=== PATIENT | male | born 1945 | race Caucasian/White ===

== ENCOUNTER 2018-06-18 18:32 | Inpatient (IN) | payer MEDICARE, MEDICAID ==
--- NOTE | 2018-06-18 19:00 | RAD ---
CHEST ONE VIEW: 06/18/18 INDICATION: CHF exacerbation. COMPARISON: Prior exam dated 06/18/18. IMPRESSION: The examination is unchanged from the comparison examination. Right basilar opacity persists. Cardio megaly and pulmonary vascular congestion is similar appearing. Osseous structures are unchanged. POS: [facility]
[2018-06-18 19:41] LABS: Bilirubin Negative (Negative); Blood, Urine Negative (Negative); Clarity CLEAR (Clear); Glucose, Urine (Dipstick) Negative (Negative); Leukocyte Small (Negative); Nitrite Negative (Negative); Protein, Urine (Dipstick) Negative (Neg-Trace); Specific Gravity, Urine 1.003 (1.002-1.036); pH, Urine 7.5 (5.0-9.0)
[2018-06-18 19:42] LABS: Bacteria/HPF 1+ HPF (None Seen); Hyaline Casts/LPF 0-3 HYALINE CAST LPF (0-3 Hyaline); RBC/HPF None Seen HPF (0-3); Squamous Epithelial None Seen HPF (0-3); WBC/HPF 0-3 HPF (0-3)
[2018-06-18 19:51] LABS: Amphetamine Not Detected (NotDetected); Barbiturates Screen Not Detected (NotDetected); Benzodiazepine Screen Detected (NotDetected); Cocaine Metabolite Screen Not Detected (NotDetected); Medtox Control Line Valid? VALID (VALID); Medtox Reader # READER 4; Methadone Not Detected (NotDetected); Methamphetamine Not Detected (NotDetected); Opiate Screen Not Detected (NotDetected); Oxycodone Screen Not Detected (NotDetected); Phencyclidine (PCP) Not Detected (NotDetected); THC/Cannabinoid Screen Detected (NotDetected); Tricyclic Screen Detected (NotDetected)
[2018-06-18] MEDS ORDERED: Sodium Chloride 0.9% 100 ML ONE (20:01)
[2018-06-18] MEDS ORDERED: cefTRIAXone\\ROCEPHIN 1 GM VIAL ONE (20:01)
[2018-06-18 21:08] LABS: #Eosinphils 0.2 thou/uL (0.0-0.7); #Lymphocytes 1.5 thou/uL (1.20-3.40); #Monocytes 0.6 thou/uL (0.11-0.59); #Neutrophils 5.1 thou/uL (1.40-6.50); %Basophils 0.5 % (0.0-1.0); %Eosinophils 2.1 % (0.0-10.0); %Lymphocytes 19.9 % (21.0-51.0); %Monocytes 8.2 % (0.0-10.0); %Neutrophils 69.2 % (42.0-75.0); Mean Corpuscular HGB CONC 30.9 g/dL (32.0-36.0); Mean Corpuscular Hemoglobin 31.7 pg (27.0-31.0); Mean Platelet Volume 9.8 fL (7.4-10.4); Platelet Count 166 thou/uL (130-400); RBC Distribution Width 15.2 % (11.5-14.5); Red Blood Cell (RBC) Count 4.75 mill/uL (4.70-6.10); White Blood Cell (WBC) Count 7.3 thou/uL (4.8-10.8)
[2018-06-18 21:30] LABS: Acetaminophen Less than 6.0 mcg/mL (10.0-30.0); Alcohol Less than 10 mg/dL (Less than 10); Magnesium 1.5 mg/dL (1.6-2.6); Salicylate Less than 8.0 mg/dL (15.0-30.0)
[2018-06-18 21:31] LABS: ALT (SGPT) 23 U/L (8-55); AST (SGOT) 40 U/L (5-34); Albumin 4.1 g/dL (3.4-4.8); Alkaline Phosphatase 133 U/L (40-150); Anion Gap 13 mmol/L (10-20); BUN (Urea Nitrogen) 15 mg/dL (8.4-25.7); Bilirubin, Total 0.9 mg/dL (0.2-1.2); Calc. Creatinine Clearance 0 mL/min (70-130); Calcium 10.2 mg/dL (7.8-10.44); Carbon Dioxide 32 mmol/L (23-31); Chloride 100 mmol/L (98-107); Estimated GFR-MDRD 75; Globulin 3.1 g/dL (2.4-3.5); Glucose 75 mg/dL (83-110); Potassium 3.4 mmol/L (3.5-5.1); Protein, Total 7.2 g/dL (5.8-8.1); Sodium 142 mmol/L (136-145)
[2018-06-18 21:57] LABS: CKMB 8.1 ng/mL (0-6.6)
[2018-06-18] MEDS ORDERED: Magnesium 2 GM/50 ML 2 GM in Premix Bag 1 BAG IVPB SCH (22:30)
[2018-06-19] MEDS ORDERED: HYDROcodone/Acetaminophen 5/325 mg Tablet ONE (00:41)
[2018-06-19] MEDS ORDERED: Magnesium Sulfate 4 GM in Sodium Chloride 0.9% 250 ML 250 ML IVPB SCH (04:00)
[2018-06-19] MEDS ORDERED: Senokot S 8.6-50 MG TAB PO PRN (05:05)
[2018-06-19] MEDS ORDERED: Ondansetron ODT 4 MG TAB PO PRN (05:05)
[2018-06-19] MEDS ORDERED: Ondansetron PF 4 MG/2 ML Vial IVP PRN (05:05)
[2018-06-19] MEDS ORDERED: Acetaminophen 325 MG TAB PO PRN (05:05)
[2018-06-19] MEDS ORDERED: Calcium Carbonate 500 MG ChewTAB PO PRN (05:05)
--- NOTE | 2018-06-19 05:51 | HP ---
PRIMARY CARE PHYSICIAN: Dr. Escobar. CHIEF CONCERN: Recurrent falls. HISTORY OF PRESENT ILLNESS: The patient is a 73-year-old male with depression dementia, hypertension, hyperlipidemia, and COPD, was brought in to [facility] Emergency Room by EMS with the above complaint. Over the last 4 months, the patient has been progressively declining. He has fallen multiple times. He has lost approximately 25 to 30 pounds over the last 3 to 4 months. He has also lost his appetite. According to the son who is at the bedside, he is severely depressed. He smokes cigarettes and cannabis. He has been short of breath on minimal exertion. No recent immobilization travel reported. History is limited from the patient due to cognitive issues. In the emergency room at [place], his initial vital signs showed temperature 96.3, respirations 20, pulse of 94 with a blood pressure 124/77 with O2 saturation 93% on room air. He received 40 mg IV Lasix in the emergency room for CHF exacerbation. According to the son, the patient refused to go to the emergency room. He had to consult APS for this reason. PAST MEDICAL HISTORY: 1. Hypertension. 2. Hyperlipidemia. 3. Dementia. 4. COPD. 5. Psoriasis. PAST SURGICAL HISTORY: Reviewed with the patient and none. ALLERGIES: NO KNOWN DRUG ALLERGIES. CURRENT HOME MEDICATIONS: The patient is unable to recall any of his home medications. Family to bring the medications later today. FAMILY HISTORY: Negative for premature coronary artery disease. SOCIAL HISTORY: The patient currently lives alone. He abuses cannabis for more than 50 years. He denies daily use of alcohol; however, he is a binge drinker. He has not consumed alcohol recently. He smokes up to half pack a day. Full code. DPOA - Patient makes his own decisions with the help of his family. REVIEW OF SYSTEMS: Review of systems is limited due to current cognitive status. PHYSICAL EXAMINATION: VITAL SIGNS: As discussed above. GENERAL: A 73-year-old male, in no apparent distress. HEENT: Head; atraumatic, normocephalic. Sclerae anicteric. Dry mucous membranes. No oral lesion. NECK: Supple. No JVD appreciated. No carotid bruit. LUNGS: Showed diminished air entry at bilateral bases with bibasilar rales. There was scattered rhonchi. Minimal wheezing noted. No accessory muscle use. HEART: S1, S2 present. 2/6 systolic murmur over the left lateral sternal border. No heaves or pulsation. Rhythm was irregularly irregular. ABDOMEN: Soft, nontender. Bowel sounds present. EXTREMITIES: There are multiple skin abrasions with chronic wounds especially over bilateral knees. SKIN: As discussed above. LYMPH NODES: No palpable lymph nodes in the neck. PERIPHERAL VASCULAR: Radial pulses palpable bilaterally. MUSCULOSKELETAL: No joint swelling or tenderness. PSYCHIATRY: The patient is alert, awake, and oriented x3. Poor historian. NEUROLOGY: Cranial nerves 2 through 12 are normal on examination. Power was 5/ 5 in all extremities. LABORATORY FINDINGS: WBC 7.3 with hemoglobin 15, hematocrit 48.7, platelet of 166. Chemistry showed sodium 142, potassium 3.4, chloride 100, bicarb 32, BUN 15, and creatinine 0.98. BNP was 3039. Magnesium 1.5. Urine drug screen was positive for tricyclics, benzodiazepines, and cannabinoids. Urinalysis was negative for wbc' s. It showed 1+ bacteria. IMAGING STUDIES: Chest x-ray by my review showed pulmonary vascular congestion. EKG by my review showed sinus rhythm with frequent PVCs with nonspecific ST-T wave changes in the lateral leads. IMPRESSION: 1. Generalized weakness with recurrent fall. 2. Acute congestive heart failure exacerbation. 3. Hypokalemia/hypomagnesemia. 4. Elevated troponin secondary to demand ischemia. 5. Macrocytosis, rule out vitamin B12 and folic acid deficiency. 6. Hypertension. 7. Hyperlipidemia. 8. Moderate depression, stable. The patient denies any suicidal ideation. 9. Weight loss of 25 to 30 pounds in the last 3 to 4 months. 10. Dementia. 11. Chronic obstructive pulmonary disease. PLAN: The patient will be monitored on the telemetry unit. Echocardiogram will be obtained. Continue gentle diuresis. We will start thiamine, folic acid, and multivitamin. We will rule out hypothyroidism. Consult Physical Therapy and Occupational Therapy. Consult Palliative Care probably on Wednesday. Fluid restriction. Check CK. Replace electrolytes. Recheck labs in a.m. Plan of care was discussed with the patient and the son at the bedside. They stated understanding. Job ID: [id number] MTDD
[2018-06-19] MEDS: Furosemide 20 MG/2 ML VIAL SLOW IVP SCH ×2 (06:30→14:51)
[2018-06-19 06:39] LABS: Anion Gap 13 mmol/L (10-20); BUN (Urea Nitrogen) 14 mg/dL (8.4-25.7); CK (CPK) 433 U/L (30-200); Calc. Creatinine Clearance 92 mL/min (70-130); Carbon Dioxide 26 mmol/L (23-31); Chloride 102 mmol/L (98-107); Estimated GFR-MDRD Greater than 90; Glucose 101 mg/dL (83-110); Potassium 3.3 mmol/L (3.5-5.1); Sodium 138 mmol/L (136-145)
[2018-06-19 06:43] LABS: CKMB 6.2 ng/mL (0-6.6)
[2018-06-19 06:44] LABS: Troponin I 0.236 ng/mL (< 0.028)
[2018-06-19 07:04] LABS: Folate (Folic Acid) 5.4 ng/mL (7.0-31.4)
[2018-06-19] MEDS ORDERED: Potassium Chloride 20 MEQ TAB PO SCH (07:45)
[2018-06-19] MEDS: Aspirin 325 MG TAB PO SCH (08:50)
[2018-06-19] MEDS: Folic Acid 1 MG TAB PO SCH (08:51)
[2018-06-19] MEDS: Carvedilol 3.125 MG TAB PO SCH ×2 (08:51→20:23)
[2018-06-19] MEDS: Multivit, Therapeutic 1 TAB PO SCH (08:51)
[2018-06-19] MEDS: Cyanocobalamin (Vitamin B-12) 1,000 MCG TAB PO SCH (08:51)
[2018-06-19] MEDS: Thiamine 100 MG TAB PO SCH (08:51)
[2018-06-19] MEDS: Doxycycline 100 MG CAP PO SCH ×2 (08:52→20:23)
--- NOTE | 2018-06-19 17:03 | PDOC.PN ---
- Subjective Encounter Start Date: 06/19/18 Encounter Start Time: 15:00 Mr. Mayfield was seen today in follow-up of generalized weakness and possible CHF. He does not have any complaints. He says he feels much stronger, but admits that he had had problems with balance and falling. - Objective Resuscitation Status - Order Detail: 06/19/18 05:05 Resuscitation Status Routine Resuscitation Status: FULL: Full Resuscitation MAR Reviewed: Yes Vital Signs & Weight: Vital Signs (12 hours) Temp Pulse Pulse Pulse Resp BP BP 06/19/18 15:51 97.3 F L 65 16 06/19/18 14:40 67 20 06/19/18 13:50 60 69 104/62 129/77 06/19/18 12:00 97.3 F L 56 L 16 06/19/18 08:00 98.2 F 64 18 06/19/18 07:48 06/19/18 07:45 66 16 BP Pulse Ox 06/19/18 15:51 120/78 97 06/19/18 14:40 97 06/19/18 13:50 06/19/18 12:00 124/74 94 L 06/19/18 08:00 142/71 H 98 06/19/18 07:48 98 06/19/18 07:45 98 Weight Weight 153 lb 3.2 oz I&O: 06/18/18 06/19/18 06/20/18 05:59 06:59 06:59 Intake Total 240 Balance 240 Result Diagrams: 06/18/18 20:45 06/19/18 06:04 Phys Exam - Physical Examination HEENT: PERRLA Respiratory: no wheezing, no rales, no rhonchi, clear to auscultation bilateral Cardiovascular: RRR, no significant murmur, no rub Gastrointestinal: soft, non-tender, no distention, positive bowel sounds Musculoskeletal: no edema Deviation from normal: + scaly rash on the knees, and patches on the upper extremities Dx/Plan (1) CHF exacerbation Code(s): I50.9 - HEART FAILURE, UNSPECIFIED Status: Acute (2) Generalized weakness Code(s): R53.1 - WEAKNESS Status: Acute (3) Folic acid deficiency Code(s): E53.8 - DEFICIENCY OF OTHER SPECIFIED B GROUP VITAMINS Status: Acute (4) Hypertension Code(s): I10 - ESSENTIAL (PRIMARY) HYPERTENSION Status: Acute - Plan * Possible CHF- continue Lasix IV, and await Echo results * HTN- blood pressure is controlled * Folic Acid Deficiency- likely nutritional- continue Folic acid and thiamine supplementation * Balance and gait deficiency could be related to folic acid deficiency ( peripheral neuropathy) * Continue PT/OT * Suspect he may need a stay in alf prior to returning home .
--- NOTE | 2018-06-19 19:12 | RAD ---
RIGHT FOOT THREE VIEWS: History: Chronic foot infection. Comparison: None. FINDINGS: There are marked [place] calcifications seen within the soft tissues. There is mild osteoarthrosis involving the midfoot and forefoot. No destructive osteolysis is seen to suggest presence of osteomy elitis on bioradiography. There is diffuse soft tissue swelling of the right foot. Lisfranc alignment is preserved. No radiopaque foreign body is noted. IMPRESSION: Diffuse soft tissue swelling of the right foot may reflect edema or cellulitis. No destructive osteol ysis is seen on these radiographs to suggest osteomyelitis. There is scattered osteoarthrosis of the right foot. There is advanced vascular disease of the right lower extremity. POS: [facility]
[2018-06-20 06:31] LABS: ALT (SGPT) 17 U/L (8-55); AST (SGOT) 25 U/L (5-34); Albumin 3.6 g/dL (3.4-4.8); Alkaline Phosphatase 115 U/L (40-150); Anion Gap 13 mmol/L (10-20); BUN (Urea Nitrogen) 13 mg/dL (8.4-25.7); Bilirubin, Total 1.2 mg/dL (0.2-1.2); Calc. Creatinine Clearance 79 mL/min (70-130); Calcium 9.4 mg/dL (7.8-10.44); Carbon Dioxide 30 mmol/L (23-31); Chloride 98 mmol/L (98-107); Estimated GFR-MDRD 90; Globulin 2.8 g/dL (2.4-3.5); Glucose 85 mg/dL (83-110); Phosphorus 2.7 mg/dL (2.3-4.7); Potassium 3.9 mmol/L (3.5-5.1); Protein, Total 6.4 g/dL (5.8-8.1); Sodium 137 mmol/L (136-145)
[2018-06-20 06:40] LABS: #Basophils 0.1 thou/uL (0.0-0.2); #Eosinphils 0.6 thou/uL (0.0-0.7); #Lymphocytes 2.3 thou/uL (1.20-3.40); #Monocytes 0.5 thou/uL (0.11-0.59); #Neutrophils 4.5 thou/uL (1.40-6.50); %Basophils 0.9 % (0.0-1.0); %Eosinophils 7.4 % (0.0-10.0); %Lymphocytes 29.2 % (21.0-51.0); %Monocytes 6.3 % (0.0-10.0); %Neutrophils 56.2 % (42.0-75.0); Hemoglobin 15.7 g/dL (14.0-18.0); MDiff Complete? YES; Macrocytosis SLIGHT = 6-15 cells (100X) (0-5/hpf); Mean Corpuscular HGB CONC 28.4 g/dL (32.0-36.0); Mean Corpuscular Hemoglobin 29.8 pg (27.0-31.0); Mean Platelet Volume 9.7 fL (7.4-10.4); Platelet Count 198 thou/uL (130-400); Platelet Morphology Comment Appears Adequate; RBC Distribution Width 15.5 % (11.5-14.5); Red Blood Cell (RBC) Count 5.29 mill/uL (4.70-6.10)
[2018-06-20] MEDS: Furosemide 20 MG/2 ML VIAL SLOW IVP SCH ×2 (06:55→15:28)
[2018-06-20] MEDS: Doxycycline 100 MG CAP PO SCH ×2 (10:26→22:42)
[2018-06-20] MEDS: Aspirin 325 MG TAB PO SCH (10:26)
[2018-06-20] MEDS: Thiamine 100 MG TAB PO SCH (10:26)
[2018-06-20] MEDS: Multivit, Therapeutic 1 TAB PO SCH (10:26)
[2018-06-20] MEDS: Cyanocobalamin (Vitamin B-12) 1,000 MCG TAB PO SCH (10:26)
[2018-06-20] MEDS: Folic Acid 1 MG TAB PO SCH (10:26)
[2018-06-20] MEDS: Carvedilol 3.125 MG TAB PO SCH ×2 (10:26→22:41)
--- NOTE | 2018-06-20 15:01 | CON ---
DATE OF CONSULTATION: 06/20/2018 INDICATION FOR CONSULTATION: A 73-year-old patient with abnormal cardiac enzymes and new onset congestive heart failure. HISTORY OF PRESENT ILLNESS: This very unfortunate 73-year-old gentleman who lives apparently with his daughter. His recently . He has become more depressed. He has been drinking quite a bit, but stopped drinking he says a couple months ago. He also has been smoking since he was a kid, even before being a teenager. He smoked up to half a pack a day and said he stopped about a month ago. He also smokes marijuana on a daily basis. He has done so for over 40 years. He complains of weakness and multiple falls. He was brought to the emergency room by his son who said he restenosed. He is having lower extremity edema and shortness of breath. The patient does admit to having shortness of breath, but denied chest pain. Echocardiogram showed an ejection fraction of 20% to 25% with diastolic dysfunction with restrictive type pattern with moderate mitral and tricuspid valve regurgitation. He has had some diuresis here, only negative 410 mL since being admitted in the hospital. He still has some edema, but shortness of breath has improved. He has had no previous cardiac workup and he has had no previous chest pain or symptoms in the past. PAST MEDICAL HISTORY: Significant for dimension, COPD, and multiple falls at least 2-3 times a week and depression. He also has a history of psoriasis which is rather diffuse as well as hypercholesterolemia and hypertension. ALLERGIES: NONE. MEDICATIONS: The patient was uncertain what he is taking, but he did tell me he takes Vicodin for pain. At this time his medications include: 1. Zofran. 2. Tylenol. 3. DuoNeb. 4. Coreg. 5. Lasix. 6. Multivitamins. 7. Aspirin. He has also been placed on: 1. Vibramycin. 2. As well as Tums. 3. Vitamin B12. 4. Folvite. 5. Thiamine. REVIEW OF SYSTEMS: Essentially, the 12-point review of systems is unremarkable except what was noted in the history of present illness. He denied any significant GI or complaints. He does complain of some shortness of breath. He has also had some problems with some healing on the right 5th foot digit, this is in a surgical wrap at this time. He is aware that he has not been taking care of himself. PHYSICAL EXAMINATION: GENERAL: Reveals an elderly, very ill, unkept gentleman, with poor hygiene. VITAL SIGNS: Blood pressure 126/77, heart rate is 66 and regular. He is afebrile. Respiratory rate 16. HEENT: Shows head to be normocephalic and atraumatic. I did not hear any bruits. There is no JVD. The thyroid does appear to be enlarged. CHEST: Actually, he has decreased breath sounds throughout, but there is no evidence of rales, rhonchi, or wheezing. CARDIOVASCULAR: Reveals a regular rate and rhythm at this time. He has a normal S1, S2. The 2nd heart sound appears to be slightly split. I did not hear any other murmurs, heaves, thrills, bruits, or rubs. ABDOMEN: Soft and nontender. Positive bowel sounds are present. EXTREMITIES: Show no clubbing or cyanosis. He has multiple areas of psoriasis on the knees and elbows. Also, he also has decreased pedal pulses. I could not palpate popliteal pulses either. The right foot is wrapped in surgical dressing. NEUROLOGIC: He does have some degree of dementia, but otherwise I do not elicit any gross focal motor deficits at this time. IMAGING: His EKG showed a sinus rhythm with what appears to be a left bundle branch block, at least an incomplete left bundle branch block with occasional PVCs. LABORATORY DATA: Did show evidence of congestive heart failure with BNP of 3039. Cardiac enzymes shows a troponin I of 0.236. CK of 433 with MB of 8.1, decreasing now to 6.2, this certainly could be some demand ischemia associated with his multiple falls, it is not significantly elevated in comparison to the total CK. Given his history of hypertension, hypercholesterolemia, and continued tobacco abuse, he is a candidate for coronary artery disease and once the patient becomes more stable, it will probably be advantageous to undergo a cardiac catheterization to evaluate the coronary status in this gentleman. IMPRESSION: 1. Congestive heart failure, probably new onset or newly diagnosed. The patient has not been taking care of very much recently and echocardiogram shows severe decrease in left ventricular systolic function. This may be due to alcohol induced viral or other etiologies, but certainly coronary artery disease will have to be ruled out. 2. History of hypertension. Blood pressure is under good control at this time. 3. Illicit drug use. The patient will be instructed not to use further alcohol or marijuana. 4. History of tobacco abuse. He also will be advised to stop smoking. 5. Chronic obstructive pulmonary disease. This will be dealt with by the primary care service. 6. Dementia. This is also will be dealt by the primary care service. 7. Multiple falls. If the patient continues to have multiple falls, most likely he will best be served by being in a facility where he can be watched and observed more carefully. Job ID: [id number]
--- NOTE | 2018-06-20 16:42 | PDOC.PN ---
- Subjective Encounter Start Date: 06/20/18 Encounter Start Time: 15:00 Mr. Mayfield was seen today in follow-up of generalized weakness and falls. He does not have any complaints today. He denies dyspnea or chest pain. - Objective Resuscitation Status - Order Detail: 06/19/18 05:05 Resuscitation Status Routine Resuscitation Status: FULL: Full Resuscitation MAR Reviewed: Yes Vital Signs & Weight: Vital Signs (12 hours) Temp Pulse Resp BP Pulse Ox 06/20/18 15:37 97.9 F 67 16 116/72 97 06/20/18 15:08 66 16 92 L 06/20/18 11:36 97.7 F 66 16 126/77 95 06/20/18 10:19 69 16 92 L 06/20/18 08:00 95 06/20/18 07:55 71 14 93 L 06/20/18 07:30 98.0 F 70 18 130/83 95 Weight Weight 155 lb 12.8 oz I&O: 06/19/18 06/20/18 06/21/18 06:59 06:59 06:59 Intake Total 990 400 Output Total 1400 Balance -410 400 Result Diagrams: 06/20/18 05:42 06/20/18 05:42 Phys Exam - Physical Examination HEENT: PERRLA Respiratory: wheezing present + scatter rales at the bases and some wheezing Cardiovascular: RRR, no significant murmur, no rub Gastrointestinal: soft, non-tender, no distention, positive bowel sounds Musculoskeletal: pulses present, edema present + non-pitting edema, cheonic venous stasis changes Dx/Plan (1) CHF exacerbation Code(s): I50.9 - HEART FAILURE, UNSPECIFIED Status: Acute Qualifiers: Heart failure type: systolic Qualified Code(s): I50.23 - Acute on chronic systolic (congestive) heart failure (2) Generalized weakness Code(s): R53.1 - WEAKNESS Status: Acute (3) Folic acid deficiency Code(s): E53.8 - DEFICIENCY OF OTHER SPECIFIED B GROUP VITAMINS Status: Acute (4) Hypertension Code(s): I10 - ESSENTIAL (PRIMARY) HYPERTENSION Status: Acute - Plan * Acute on chronic systolic heart failure- he is better compensated- EF was noted to be low, between 20-25%. Cardiology has been consulted, and work-up is pending * HTN- blood pressure is controlled * Folic Acid deficiency- continue to replace * Patient had a suspicious lesion on his foot- concern for PVD- will check arterial dopplers.
--- NOTE | 2018-06-20 20:51 | ULT ---
BILATERAL LOWER EXTREMITY ARTERIAL DOPPLER EXAM: History: Peripheral vascular disease. FINDINGS: Right: Peak systolic velocity Common femoral artery 56 cm/sec Profunda femoral 51 cm/sec Proximal superficial femoral 61 cm/sec Mid 58 cm/sec Distal 34 cm/sec Popliteal 37 cm/sec Anterior tibial 29 cm/sec Posterior tibial 32 cm/sec Dorsalis pedis 31 cm/sec Left side: Common femoral artery 70 cm/sec Profunda femoral 51 cm/sec Proximal superficial femoral 53 cm/sec Mid 62 cm/sec Distal 70 cm/sec Popliteal 34 cm/sec Anterior tibial 45 cm/sec Posterior tibial 19 cm/sec Dorsalis pedis 42 cm/sec IMPRESSION: 1. Mildly reduced velocities of both common femoral arteries, particularly on the right. This would s uggest the possibility of proximal aortoiliac disease. In addition, there is suggestion of some mild narrowing of the junction of the mid to distal superficial femoral artery on the right and the juncti on of the distal superficial femoral artery and popliteal artery on the left where there is probably at least a moderate degree of stenosis. POS: [facility]
[2018-06-21] MEDS: Furosemide 20 MG/2 ML VIAL SLOW IVP SCH ×2 (05:28→14:38)
[2018-06-21 05:42] LABS: #Basophils 0.1 thou/uL (0.0-0.2); #Eosinphils 0.5 thou/uL (0.0-0.7); #Lymphocytes 1.9 thou/uL (1.20-3.40); #Monocytes 0.5 thou/uL (0.11-0.59); #Neutrophils 4.9 thou/uL (1.40-6.50); %Basophils 0.7 % (0.0-1.0); %Eosinophils 6.6 % (0.0-10.0); %Lymphocytes 24.5 % (21.0-51.0); %Monocytes 5.8 % (0.0-10.0); %Neutrophils 62.4 % (42.0-75.0); Hemoglobin 16.5 g/dL (14.0-18.0); Mean Corpuscular HGB CONC 31.3 g/dL (32.0-36.0); Mean Corpuscular Hemoglobin 31.8 pg (27.0-31.0); Mean Platelet Volume 9.1 fL (7.4-10.4); Platelet Count 201 thou/uL (130-400); RBC Distribution Width 15.3 % (11.5-14.5); Red Blood Cell (RBC) Count 5.17 mill/uL (4.70-6.10); White Blood Cell (WBC) Count 7.9 thou/uL (4.8-10.8)
[2018-06-21 06:08] LABS: ALT (SGPT) 17 U/L (8-55); AST (SGOT) 23 U/L (5-34); Albumin 3.6 g/dL (3.4-4.8); Alkaline Phosphatase 121 U/L (40-150); Anion Gap 14 mmol/L (10-20); BUN (Urea Nitrogen) 18 mg/dL (8.4-25.7); Bilirubin, Total 0.9 mg/dL (0.2-1.2); Calc. Creatinine Clearance 83 mL/min (70-130); Calcium 9.6 mg/dL (7.8-10.44); Carbon Dioxide 29 mmol/L (23-31); Chloride 99 mmol/L (98-107); Estimated GFR-MDRD Greater than 90; Globulin 2.9 g/dL (2.4-3.5); Glucose 85 mg/dL (83-110); Magnesium 1.9 mg/dL (1.6-2.6); Phosphorus 3.8 mg/dL (2.3-4.7); Potassium 3.6 mmol/L (3.5-5.1); Protein, Total 6.5 g/dL (5.8-8.1); Sodium 138 mmol/L (136-145)
[2018-06-21] MEDS: Doxycycline 100 MG CAP PO SCH ×2 (09:12→21:34)
[2018-06-21] MEDS: Aspirin 325 MG TAB PO SCH (09:12)
[2018-06-21] MEDS: Thiamine 100 MG TAB PO SCH (09:13)
[2018-06-21] MEDS: Folic Acid 1 MG TAB PO SCH (09:13)
[2018-06-21] MEDS: Spironolactone 25 MG TAB PO SCH (09:13)
[2018-06-21] MEDS: Carvedilol 3.125 MG TAB PO SCH ×2 (09:13→21:35)
[2018-06-21] MEDS: Cyanocobalamin (Vitamin B-12) 1,000 MCG TAB PO SCH (09:13)
[2018-06-21] MEDS: Multivit, Therapeutic 1 TAB PO SCH (09:13)
[2018-06-21] MEDS: Lisinopril 5 MG TAB PO SCH ×2 (09:14→21:35)
--- NOTE | 2018-06-21 16:01 | PDOC.PN ---
- Subjective Encounter Start Date: 06/21/18 Encounter Start Time: 15:00 Mr. Mayfield was seen today in follow-up of newly diagnosed heart failure. He does not have any complaints today. - Objective Resuscitation Status - Order Detail: 06/19/18 05:05 Resuscitation Status Routine Resuscitation Status: FULL: Full Resuscitation MAR Reviewed: Yes Vital Signs & Weight: Vital Signs (12 hours) Temp Pulse Pulse Pulse Resp BP BP 06/21/18 15:31 97.4 F L 65 20 06/21/18 11:35 97.7 F 69 18 06/21/18 10:54 69 84 120/69 123/63 06/21/18 10:03 79 14 06/21/18 09:14 71 06/21/18 08:00 97.5 F L 72 20 06/21/18 06:25 76 16 06/21/18 04:00 98.2 F 72 19 BP BP Pulse Ox Pulse Ox 06/21/18 15:31 114/62 98 06/21/18 11:35 128/63 95 06/21/18 10:54 95 06/21/18 10:03 95 06/21/18 09:14 06/21/18 08:00 119/71 93 L 06/21/18 06:25 94 L 06/21/18 04:00 125/77 95 Weight Weight 154 lb 8 oz I&O: 06/20/18 06/21/18 06/22/18 06:59 06:59 06:59 Intake Total 990 1040 480 Output Total 1400 350 Balance -410 1040 130 Result Diagrams: 06/21/18 05:21 06/21/18 05:21 Phys Exam - Physical Examination HEENT: PERRLA, sclera anicteric Respiratory: no wheezing, no rales, no rhonchi, clear to auscultation bilateral Cardiovascular: RRR, no significant murmur, no rub Gastrointestinal: soft, non-tender, no distention, positive bowel sounds Musculoskeletal: no edema, pulses present + palpable D.P. and P.T. pulses bilaterally, but they are diminished Neurological: non-focal Dx/Plan (1) CHF exacerbation Code(s): I50.9 - HEART FAILURE, UNSPECIFIED Status: Acute Qualifiers: Heart failure type: systolic Qualified Code(s): I50.23 - Acute on chronic systolic (congestive) heart failure (2) Generalized weakness Code(s): R53.1 - WEAKNESS Status: Acute (3) Folic acid deficiency Code(s): E53.8 - DEFICIENCY OF OTHER SPECIFIED B GROUP VITAMINS Status: Acute (4) Hypertension Code(s): I10 - ESSENTIAL (PRIMARY) HYPERTENSION Status: Acute - Plan * New Onset CHF- plan is for cardiac cath tomorrow * Clinically this is compensated * HTN- blood pressure is controlled * Folic Acid deficiency- continue to replace * PT/OT * correction placement once work-up for CHF complete.
[2018-06-21] MEDS ORDERED: Simvastatin 20 MG TAB PO SCH (21:00)
[2018-06-21] MEDS ORDERED: Donepezil HCl 10 MG TAB PO SCH (23:45)
[2018-06-22 05:46] LABS: Cardiac Risk 3.3 (Less than 4.5)
[2018-06-22] MEDS ORDERED: Simvastatin 20 MG TAB PO SCH (08:28)
[2018-06-22] MEDS: Multivit, Therapeutic 1 TAB PO SCH (08:57)
[2018-06-22] MEDS: Doxycycline 100 MG CAP PO SCH ×2 (08:57→21:28)
[2018-06-22] MEDS: Thiamine 100 MG TAB PO SCH (08:57)
[2018-06-22] MEDS: Carvedilol 3.125 MG TAB PO SCH ×2 (08:57→21:29)
[2018-06-22] MEDS: Folic Acid 1 MG TAB PO SCH (08:57)
[2018-06-22] MEDS: Cyanocobalamin (Vitamin B-12) 1,000 MCG TAB PO SCH (08:57)
[2018-06-22] MEDS: Aspirin 325 MG TAB PO SCH (08:57)
[2018-06-22] MEDS: Lisinopril 5 MG TAB PO SCH ×2 (08:57→21:28)
[2018-06-22] MEDS: Spironolactone 25 MG TAB PO SCH (08:58)
[2018-06-22] MEDS: Furosemide 20 MG/2 ML VIAL SLOW IVP SCH ×2 (10:11→15:36)
--- NOTE | 2018-06-22 13:53 | PDOC.PN ---
- Subjective Encounter Start Date: 06/22/18 Encounter Start Time: 13:51 Subjective: woken up and denies any discomfort or chest pain or SOB -: no ON events - Objective Resuscitation Status - Order Detail: 06/19/18 05:05 Resuscitation Status Routine Resuscitation Status: FULL: Full Resuscitation MAR Reviewed: Yes Vital Signs & Weight: Vital Signs (12 hours) Temp Pulse Resp BP BP BP Pulse Ox 06/22/18 13:49 65 16 95 06/22/18 11:25 97.9 F 68 18 118/75 92 L 06/22/18 10:36 69 18 94 L 06/22/18 08:57 78 135/82 95 06/22/18 07:36 98.3 F 78 20 135/82 93 L 06/22/18 06:26 75 16 95 06/22/18 04:00 98.4 F 73 18 134/77 96 06/22/18 02:28 74 16 95 Weight Weight 151 lb 3.2 oz I&O: 06/21/18 06/22/18 06/23/18 06:59 06:59 06:59 Intake Total 1040 680 Output Total 350 Balance 1040 330 Result Diagrams: 06/21/18 05:21 06/21/18 05:21 Additional Labs: Microbiology 06/18/18 22:39 Venous blood - Right Arm Blood Culture - Preliminary NO GROWTH AT 48 HOURS 06/18/18 20:45 Venous blood - Right Arm Blood Culture - Preliminary NO GROWTH AT 48 HOURS Laboratory Tests 06/18/18 06/18/18 06/18/18 15:30 20:45 20:45 CK-MB (CK-2) Troponin I 0.243 H 0.235 H B-Natriuretic Peptide 3039.5 H Vitamin B12 Folate TSH 3rd Generation 06/19/18 06/19/18 06/19/18 06:04 06:04 06:04 CK-MB (CK-2) Troponin I 0.236 H B-Natriuretic Peptide Vitamin B12 401 Folate 5.40 L TSH 3rd Generation 2.4688 06/19/18 06:04 CK-MB (CK-2) 6.2 Troponin I B-Natriuretic Peptide Vitamin B12 Folate TSH 3rd Generation Phys Exam - Physical Examination Constitutional: NAD HEENT: PERRLA, moist MMs, sclera anicteric, TM's clear, 2+ tonsils Neck: no nodes, no JVD, supple, full ROM Respiratory: no wheezing, no rales, no rhonchi Cardiovascular: RRR, no significant murmur Gastrointestinal: soft, non-tender, no distention, positive bowel sounds Musculoskeletal: no edema, pulses present Neurological: non-focal, normal sensation, moves all 4 limbs Psychiatric: normal affect, A&O x 3 Skin: no rash Dx/Plan (1) CHF exacerbation Code(s): I50.9 - HEART FAILURE, UNSPECIFIED Status: Acute Qualifiers: Heart failure type: combined systolic and diastolic Qualified Code(s): I50.43 - Acute on chronic combined systolic (congestive) and diastolic ( congestive) heart failure Comment: ECHO shows poor EF with diastolic dusfunction. (2) Folic acid deficiency Code(s): E53.8 - DEFICIENCY OF OTHER SPECIFIED B GROUP VITAMINS Status: Chronic (3) Generalized weakness Code(s): R53.1 - WEAKNESS Status: Chronic (4) Hypertension Code(s): I10 - ESSENTIAL (PRIMARY) HYPERTENSION Status: Chronic (5) Tobacco abuse Code(s): Z72.0 - TOBACCO USE Status: Chronic (6) Tobacco abuse counseling Code(s): Z71.6 - TOBACCO ABUSE COUNSELING Status: Acute (7) HLD (hyperlipidemia) Code(s): E78.5 - HYPERLIPIDEMIA, UNSPECIFIED Status: Chronic (8) COPD (chronic obstructive pulmonary disease) Status: Chronic (9) Psoriasis Code(s): L40.9 - PSORIASIS, UNSPECIFIED Status: Chronic - Plan PT/OT, DVT proph w/lovenox, DVT proph w/SCDs cont diuresis.apperas euvolemic. -: on ASA,statin,BB,jake-i.increase statin dose given evidence of PAD -: cont aldactone given EF 20-25% -: Cardiac cath today. -: approved for rehab.DC when cardiac work up completed.HD stable * . Review of Systems - Review of Systems Constitutional: weakness, malaise. negative: fever, chills, sweats, other Respiratory: negative: Cough, Dry, Shortness of Breath, Hemoptysis, SOB with Excertion, Pleuritic Pain, Sputum, Wheezing Cardiovascular: negative: chest pain, palpitations, orthopnea, paroxysmal nocturnal dyspnea, edema, light headedness, other Gastrointestinal: negative: Nausea, Vomiting, Abdominal Pain, Diarrhea, Constipation, Melena, Hematochezia, Other Genitourinary: negative: Dysuria, Frequency, Incontinence, Hematuria, Retention , Other Musculoskeletal: negative: Neck Pain, Shoulder Pain, Arm Pain, Back Pain, Hand Pain, Leg Pain, Foot Pain, Other Neurological: negative: Weakness, Numbness, Incoordination, Change in Speech, Confusion, Seizures, Other - Medications/Allergies Allergies/Adverse Reactions: Allergies Allergy/AdvReac Type Severity Reaction Status Date / Time No Known Drug Allergies Allergy Verified 06/18/18 22:15 Medications: Current Medications Acetaminophen (Tylenol) 650 mg PO Q4H PRN PRN Reason: Headache/Fever/Mild Pain (1-3) Albuterol/Ipratropium (Duoneb) 3 ml NEB [id number] [facility] Last Admin: 06/22/18 13:49 Dose: 3 ml Aspirin (Aspirin) 325 mg PO DAILY [facility] Last Admin: 06/22/18 08:57 Dose: 325 mg Atorvastatin Calcium (Lipitor) 10 mg PO HS [facility] Calcium Carbonate (Tums) 1,000 mg PO Q4H PRN PRN Reason: Heartburn or Indigestion Carvedilol (Coreg) 3.125 mg PO BID [facility] Last Admin: 06/22/18 08:57 Dose: 3.125 mg Cyanocobalamin (Vitamin B-12) 1,000 mcg PO DAILY [facility] Last Admin: 06/22/18 08:57 Dose: 1,000 mcg Donepezil HCl (Aricept) 10 mg PO HS [facility] Doxycycline Hyclate (Vibramycin) 100 mg PO BID [facility] Last Admin: 06/22/18 08:57 Dose: 100 mg Folic Acid (Folvite) 1 mg PO DAILY [facility] Last Admin: 06/22/18 08:57 Dose: 1 mg Furosemide (Lasix) 20 mg SLOW IVP 0600,1400 [facility] Last Admin: 06/22/18 10:11 Dose: 20 mg Lisinopril (Zestril) 5 mg PO BID [facility] Last Admin: 06/22/18 08:57 Dose: 5 mg Multivitamins (Theragran) 1 tab PO DAILY [facility] Last Admin: 06/22/18 08:57 Dose: 1 tab Ondansetron HCl (Zofran Odt) 4 mg PO Q6H PRN PRN Reason: Nausea/Vomiting Ondansetron HCl (Zofran) 4 mg IVP Q6H PRN PRN Reason: Nausea/Vomiting Senna/Docusate Sodium (Senokot S) 2 tab PO BIDPRN PRN PRN Reason: Constipation Sodium Chloride (Flush - Normal Saline) 10 ml IVF Q12HR [facility] Last Admin: 06/22/18 10:11 Dose: 10 ml Sodium Chloride (Flush - Normal Saline) 10 ml IVF PRN PRN PRN Reason: Saline Flush Spironolactone (Aldactone) 25 mg PO QAM-WM [facility] Last Admin: 06/22/18 08:58 Dose: 25 mg Thiamine HCl (Thiamine) 100 mg PO DAILY [facility] Last Admin: 06/22/18 08:57 Dose: 100 mg
--- NOTE | 2018-06-22 15:29 | PDOC.CTH ---
Cardiology Progress Note - Subjective Pt. seen and eval. by me. No new overnight events. no c/o's. - Objective Vital Signs Temp Pulse Resp BP BP BP Pulse Ox 06/22/18 13:49 65 16 95 06/22/18 11:25 97.9 F 68 18 118/75 92 L 06/22/18 10:36 69 18 94 L 06/22/18 08:57 78 135/82 95 06/22/18 07:36 98.3 F 78 20 135/82 93 L 06/22/18 06:26 75 16 95 06/22/18 04:00 98.4 F 73 18 134/77 96 Weight 151 lb 3.2 oz 06/21/18 06/22/18 06/23/18 06:59 06:59 06:59 Intake Total 1040 680 Output Total 350 Balance 1040 330 - Physical Examination General/Neuro: alert & oriented x3 Neck: no JVD present Lungs: CTA, other: (decreased BS throughout.) Heart: RRR, other: (occ. ectopy.) Abdomen: no HSM, NT/ND, soft Extremities: other: (no palpable popliteal or pedal pulses bila. Femoral pulses present byt decreased.) - Telemetry Telemetry Rhythm: NSR.Occasional PVC.IVCD - Labs Result Diagrams: 06/21/18 05:21 06/21/18 05:21 Troponin/CKMB CK-MB (CK-2) 6.2 ng/mL (0-6.6) 06/19/18 06:04 Troponin I 0.236 ng/mL (< 0.028) H 06/19/18 06:04 - Assessment/Plan 1. CMY: uncertain etiology. Could be significant CAD. Long history of tobacco abuse.HTN.Dyslipidemia.May need Life-Vest prior to d/c. Continue present meds. North-I,Coreg, Aldactone, ASA, Lipitor. 2. HTN: stable. 3. Dyslipidemia. 4. Tobacco abuse. 5. ETOH abuse. 5. Illicit drug use. 6. Frequent falls. 7. Abnormal CIE's. Pt. may benefit from cardiac cath to determine his Coronary status. He denies chest pain or SOB. 8. generalized weakness. Since he remains asymptomatic, it is probably best to apply a Life-Vest. Treat him medically and see if he improves physically and plan for cath in the near future. If he needs CABG he is not a good candidate to do post-op rehab at this time.Once he gets the vest he could go to rehab and follow up in the office in 2 -4 weeks. Review of Systems - Review of Systems EENTM: reports: no symptoms reported Respiratory: reports: no symptoms reported Cardiac (ROS): reports: no symptoms reported ABD/GI: reports: no symptoms reported : reports: no symptoms reported Musculoskeletal: reports: no symptoms reported Neurological: reports: weakness
[2018-06-22] MEDS ORDERED: Clopidogrel Bisulfate 75 MG TAB ONE (21:17)
[2018-06-22] MEDS: Donepezil HCl 10 MG TAB PO SCH (21:27)
[2018-06-22] MEDS: Atorvastatin Calcium 10 MG TAB PO SCH (21:29)
[2018-06-23] MEDS: Furosemide 20 MG/2 ML VIAL SLOW IVP SCH ×2 (05:56→14:55)
[2018-06-23] MEDS: Doxycycline 100 MG CAP PO SCH ×2 (08:49→20:30)
[2018-06-23] MEDS: Cyanocobalamin (Vitamin B-12) 1,000 MCG TAB PO SCH (08:49)
[2018-06-23] MEDS: Aspirin 325 MG TAB PO SCH (08:49)
[2018-06-23] MEDS: Folic Acid 1 MG TAB PO SCH (08:50)
[2018-06-23] MEDS: Thiamine 100 MG TAB PO SCH (08:50)
[2018-06-23] MEDS: Lisinopril 5 MG TAB PO SCH ×2 (08:50→20:31)
[2018-06-23] MEDS: Spironolactone 25 MG TAB PO SCH (08:50)
[2018-06-23] MEDS: Multivit, Therapeutic 1 TAB PO SCH (08:50)
[2018-06-23] MEDS: Carvedilol 3.125 MG TAB PO SCH ×2 (08:54→20:31)
--- NOTE | 2018-06-23 10:03 | PDOC.PN ---
- Subjective Encounter Start Date: 06/23/18 Encounter Start Time: 08:10 -: old records requested/rev Patient seen and examined. No new complaints. No overnight events - Objective Resuscitation Status - Order Detail: 06/19/18 05:05 Resuscitation Status Routine Resuscitation Status: FULL: Full Resuscitation MAR Reviewed: Yes Vital Signs & Weight: Vital Signs (12 hours) Temp Pulse Resp BP Pulse Ox 06/23/18 08:50 75 06/23/18 07:35 75 16 95 06/23/18 07:26 98.0 F 72 18 122/77 95 06/23/18 03:54 97.8 F 70 16 109/59 L 96 06/23/18 02:19 75 16 95 06/23/18 00:15 97.9 F 69 17 121/77 99 Weight Weight 148 lb 8 oz I&O: 06/22/18 06/23/18 06/24/18 06:59 06:59 06:59 Intake Total 680 865 Output Total 350 1625 Balance 330 -760 Result Diagrams: 06/21/18 05:21 06/21/18 05:21 Radiology Reviewed by me: Yes EKG Reviewed by me: Yes Phys Exam - Physical Examination Constitutional: NAD HEENT: PERRLA, moist MMs, sclera anicteric Neck: no JVD, supple Respiratory: no wheezing, no rales, no rhonchi Cardiovascular: RRR, no significant murmur, no rub Gastrointestinal: soft, non-tender, no distention Musculoskeletal: no edema, pulses present Neurological: non-focal, normal sensation Lymphatic: no nodes Psychiatric: normal affect, A&O x 3 Skin: normal turgor Deviation from normal: psoarasis rash noted Dx/Plan (1) Acute on chronic systolic ACC/AHA stage C congestive heart failure Code(s): I50.23 - ACUTE ON CHRONIC SYSTOLIC (CONGESTIVE) HEART FAILURE Status : Acute (2) Moderate mitral regurgitation Code(s): I34.0 - NONRHEUMATIC MITRAL (VALVE) INSUFFICIENCY Status: Acute (3) Moderate tricuspid regurgitation Code(s): I07.1 - RHEUMATIC TRICUSPID INSUFFICIENCY Status: Acute (4) COPD (chronic obstructive pulmonary disease) Status: Chronic (5) Folic acid deficiency Code(s): E53.8 - DEFICIENCY OF OTHER SPECIFIED B GROUP VITAMINS Status: Chronic (6) Generalized weakness Code(s): R53.1 - WEAKNESS Status: Chronic (7) HLD (hyperlipidemia) Code(s): E78.5 - HYPERLIPIDEMIA, UNSPECIFIED Status: Chronic (8) Hypertension Code(s): I10 - ESSENTIAL (PRIMARY) HYPERTENSION Status: Chronic (9) Psoriasis Code(s): L40.9 - PSORIASIS, UNSPECIFIED Status: Chronic (10) Tobacco abuse Code(s): Z72.0 - TOBACCO USE Status: Chronic - Plan cont current plan of care, PT/OT, rn social services * continue current medical management * await life vest arrangement * await placement * medication reviewed as below * symptomatic treatment. Review of Systems - Review of Systems ENT: negative: Ear Pain, Ear Discharge, Nose Pain, Nose Discharge, Nose Congestion, Mouth Pain, Mouth Swelling, Throat Pain, Throat Swelling, Other Respiratory: negative: Cough, Dry, Shortness of Breath, Hemoptysis, SOB with Excertion, Pleuritic Pain, Sputum, Wheezing Cardiovascular: negative: chest pain, palpitations, orthopnea, paroxysmal nocturnal dyspnea, edema, light headedness, other Gastrointestinal: negative: Nausea, Vomiting, Abdominal Pain, Diarrhea, Constipation, Melena, Hematochezia, Other Genitourinary: negative: Dysuria, Frequency, Incontinence, Hematuria, Retention , Other Musculoskeletal: negative: Neck Pain, Shoulder Pain, Arm Pain, Back Pain, Hand Pain, Leg Pain, Foot Pain, Other - Medications/Allergies Allergies/Adverse Reactions: Allergies Allergy/AdvReac Type Severity Reaction Status Date / Time No Known Drug Allergies Allergy Verified 06/18/18 22:15 Medications: Current Medications Acetaminophen (Tylenol) 650 mg PO Q4H PRN PRN Reason: Headache/Fever/Mild Pain (1-3) Albuterol/Ipratropium (Duoneb) 3 ml NEB [id number] [facility] Last Admin: 06/23/18 07:35 Dose: 3 ml Aspirin (Aspirin) 325 mg PO DAILY [facility] Last Admin: 06/23/18 08:49 Dose: 325 mg Atorvastatin Calcium (Lipitor) 10 mg PO HS [facility] Last Admin: 06/22/18 21:29 Dose: 10 mg Calcium Carbonate (Tums) 1,000 mg PO Q4H PRN PRN Reason: Heartburn or Indigestion Carvedilol (Coreg) 3.125 mg PO BID [facility] Last Admin: 06/23/18 08:54 Dose: 3.125 mg Cyanocobalamin (Vitamin B-12) 1,000 mcg PO DAILY [facility] Last Admin: 06/23/18 08:49 Dose: 1,000 mcg Donepezil HCl (Aricept) 10 mg PO HS [facility] Last Admin: 06/22/18 21:27 Dose: 10 mg Doxycycline Hyclate (Vibramycin) 100 mg PO BID [facility] Last Admin: 06/23/18 08:49 Dose: 100 mg Folic Acid (Folvite) 1 mg PO DAILY [facility] Last Admin: 06/23/18 08:50 Dose: 1 mg Furosemide (Lasix) 20 mg SLOW IVP 0600,1400 [facility] Last Admin: 06/23/18 05:56 Dose: 20 mg Lisinopril (Zestril) 5 mg PO BID [facility] Last Admin: 06/23/18 08:50 Dose: 5 mg Multivitamins (Theragran) 1 tab PO DAILY [facility] Last Admin: 06/23/18 08:50 Dose: 1 tab Ondansetron HCl (Zofran Odt) 4 mg PO Q6H PRN PRN Reason: Nausea/Vomiting Ondansetron HCl (Zofran) 4 mg IVP Q6H PRN PRN Reason: Nausea/Vomiting Senna/Docusate Sodium (Senokot S) 2 tab PO BIDPRN PRN PRN Reason: Constipation Sodium Chloride (Flush - Normal Saline) 10 ml IVF Q12HR [facility] Last Admin: 06/23/18 08:50 Dose: 10 ml Sodium Chloride (Flush - Normal Saline) 10 ml IVF PRN PRN PRN Reason: Saline Flush Last Admin: 06/23/18 05:56 Dose: 10 ml Spironolactone (Aldactone) 25 mg PO QAM-WM [facility] Last Admin: 06/23/18 08:50 Dose: 25 mg Thiamine HCl (Thiamine) 100 mg PO DAILY [facility] Last Admin: 06/23/18 08:50 Dose: 100 mg
--- NOTE | 2018-06-23 10:45 | PDOC.CTH ---
Cardiology Progress Note - Subjective The pt seen and examined. No overnight events. No Cardiac complaints. - Objective Vital Signs Temp Pulse Resp BP Pulse Ox 06/23/18 10:43 82 16 95 06/23/18 08:50 75 06/23/18 07:35 75 16 95 06/23/18 07:26 98.0 F 72 18 122/77 95 06/23/18 03:54 97.8 F 70 16 109/59 L 96 06/23/18 02:19 75 16 95 06/23/18 00:15 97.9 F 69 17 121/77 99 Weight 148 lb 8 oz 06/22/18 06/23/18 06/24/18 06:59 06:59 06:59 Intake Total 680 865 Output Total 350 1625 Balance 330 -760 - Physical Examination General/Neuro: alert & oriented x3 Neck: no JVD present Lungs: other: (diminished at bases) Heart: RRR Abdomen: soft Extremities: other: (No edema) - Telemetry Telemetry Rhythm: SR - Labs Result Diagrams: 06/21/18 05:21 06/21/18 05:21 Troponin/CKMB CK-MB (CK-2) 6.2 ng/mL (0-6.6) 06/19/18 06:04 Troponin I 0.236 ng/mL (< 0.028) H 06/19/18 06:04 - Assessment/Plan 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 Long history of tobacco abuse, HTN, and Dyslipidemia. May need Life-Vest prior to d/c. Continue present meds. North-I,Coreg, Aldactone, ASA, Lipitor. 2. HTN: stable. 3. Dyslipidemia. 4. Tobacco abuse. 5. ETOH abuse. 5. Illicit drug use. 6. Frequent falls. 7. Abnormal CIE's. Pt. may benefit from cardiac cath to determine his Coronary status. He denies chest pain or SOB. 8. generalized weakness. 9. COPD 10. NSTEMI demand ischemia vs Could be significant CAD. Long history of tobacco abuse, HTN, and Dyslipidemia. MAR reviewed * From Cardiac standpoint, the pt is stable to tx to rehab with LifeVest with medical tx to see if he improves physically and plan for cath in the near future. If he needs CABG he is not a good candidate to do post-op rehab at this time. F/u with Dr Griffin' office within 2-4 wks. Review of Systems - Review of Systems Constitutional: reports: no symptoms reported EENTM: reports: no symptoms reported Respiratory: reports: no symptoms reported Cardiac (ROS): reports: no symptoms reported ABD/GI: reports: no symptoms reported : reports: no symptoms reported Musculoskeletal: reports: no symptoms reported
[2018-06-23] MEDS: Lorazepam 1 MG TAB PO PRN ×2 (13:03→20:36)
[2018-06-23 13:46] VITALS: BMI 26.3
[2018-06-23] MEDS: Atorvastatin Calcium 10 MG TAB PO SCH (20:31)
[2018-06-23] MEDS: Donepezil HCl 10 MG TAB PO SCH (20:31)
[2018-06-24] MEDS: Furosemide 20 MG/2 ML VIAL SLOW IVP SCH (05:30)
[2018-06-24] MEDS: Carvedilol 3.125 MG TAB PO SCH (08:50)
[2018-06-24] MEDS: Aspirin 325 MG TAB PO SCH (08:50)
[2018-06-24] MEDS: Spironolactone 25 MG TAB PO SCH (08:50)
[2018-06-24] MEDS: Multivit, Therapeutic 1 TAB PO SCH (08:50)
[2018-06-24] MEDS: Thiamine 100 MG TAB PO SCH (08:51)
[2018-06-24] MEDS: Lisinopril 5 MG TAB PO SCH (08:51)
[2018-06-24] MEDS: Folic Acid 1 MG TAB PO SCH (08:51)
[2018-06-24] MEDS: Doxycycline 100 MG CAP PO SCH (08:51)
[2018-06-24] MEDS: Cyanocobalamin (Vitamin B-12) 1,000 MCG TAB PO SCH (08:51)
[2018-06-24 08:54] VITALS: BP 125/78; TEMP 98.2
--- NOTE | 2018-06-24 09:11 | PDOC.CTH ---
Cardiology Progress Note - Subjective The pt seen and examined. No overnight events. No cardiac complaints. He is wearing LifeVest now. - Objective Vital Signs Temp Pulse Resp BP BP Pulse Ox 06/24/18 08:52 98.2 F 67 18 125/78 96 06/24/18 08:51 71 06/24/18 06:35 71 16 92 L 06/24/18 03:20 97.7 F 69 16 106/57 L 90 L 06/23/18 22:27 72 16 97 Admit Weight 153 lb 3.2 oz Weight 150 lb 06/23/18 06/24/18 06/25/18 06:59 06:59 06:59 Intake Total 865 500 Output Total 1625 275 Balance -760 225 - Physical Examination General/Neuro: alert & oriented x3 Neck: no JVD present Lungs: CTA Heart: RRR Abdomen: soft Extremities: other: (No edema) - Telemetry Telemetry Rhythm: SR - Labs Result Diagrams: 06/21/18 05:21 06/21/18 05:21 Troponin/CKMB CK-MB (CK-2) 6.2 ng/mL (0-6.6) 06/19/18 06:04 Troponin I 0.236 ng/mL (< 0.028) H 06/19/18 06:04 - Assessment/Plan 1. EOTH induced CMY vs Could be significant CAD - Long history of ETOH and tobacco abuse, HTN, and Dyslipidemia. May need Life-Vest prior to d/c. Continue present meds. North-I,Coreg, Aldactone, ASA, Lipitor. 2. HTN: stable. 3. Dyslipidemia. 4. Tobacco abuse. 5. ETOH abuse - used to drink daily, and quit about 1 year ago. 5. Illicit drug use. 6. Frequent falls. 7. Abnormal CIE's. Pt. may benefit from cardiac cath to determine his Coronary status. He denies chest pain or SOB. 8. generalized weakness. 9. COPD 10. NSTEMI demand ischemia vs Could be significant CAD. Long history of tobacco abuse, HTN, and Dyslipidemia. MAR reviewed * From Cardiac standpoint, the pt is stable to tx to rehab with LifeVest with medical tx to see if he improves physically and plan for cath in the near future. If he needs CABG, he is not a good candidate to do post-op rehab at this time. F/u with Dr Griffin' office within 2-4 wks. Review of Systems - Review of Systems Constitutional: reports: no symptoms reported EENTM: reports: no symptoms reported Respiratory: reports: no symptoms reported Cardiac (ROS): reports: no symptoms reported ABD/GI: reports: no symptoms reported : reports: no symptoms reported Musculoskeletal: reports: no symptoms reported
--- NOTE | 2018-06-24 11:17 | DIS ---
DATE OF ADMISSION: 06/18/2018 DATE OF DISCHARGE: 06/24/2018 PRIMARY CARE PHYSICIAN: Eb Escobar MD DISCHARGE DISPOSITION: [facility]. PRIMARY DISCHARGE DIAGNOSES: 1. Acute on chronic systolic congestive heart failure, stage C. 2. Moderate mitral and tricuspid regurgitation. SECONDARY DISCHARGE DIAGNOSES: 1. Folic acid deficiency. 2. Hypertension. 3. Tobacco abuse. 4. Dyslipidemia. 5. Chronic obstructive pulmonary disease. 6. Psoriasis. 7. Physical deconditioning. PRIMARY PROCEDURE/OPERATION: None. RADIOLOGICAL INVESTIGATION: Chest x-ray on admission showed pulmonary vascular congestion. Foot x-ray was negative for any fracture or dislocation. Echocardiography showed EF 20% to 25% and diastolic dysfunction with moderate mitral and tricuspid regurgitation. Ultrasound, negative for any DVT as well as arterial Doppler was negative for any acute stenosis, but suggestive of proximal aortoiliac disease. SIGNIFICANT LABORATORY DATA: WBC 7.9, hemoglobin 16.5, and platelets 201. Sodium 138, potassium 3.6, BUN 18, creatinine 0.80, calcium 9.6, AST 23, ALT 17, alkaline phosphatase 121, albumin 3.6, and folic acid 5.40. TSH 2.4. LDL 59. Urine drug screen, positive for cannabinoids, benzos, tricyclic. Serum drug screen negative. Blood culture negative. DISCHARGE MEDICATIONS: 1. Aspirin 325 mg p.o. daily. 2. Lipitor 10 mg at bedtime. 3. Coreg 3.125 mg b.i.d. 4. Vitamin B12 of 1000 mcg daily. 5. Aricept 10 mg at bedtime. 6. Doxycycline 100 mg b.i.d. for 7 days. 7. Folic acid 1 mg daily. 8. Lasix 20 mg b.i.d. 9. Lisinopril 5 mg b.i.d. 10. Multivitamin one tablet daily. 11. Aldactone 25 mg daily. 12. Thiamine 100 mg p.o. daily. CONTRAINDICATION: None. CODE STATUS: Full code. INPATIENT PROGRAMS DIRECTOR: Cardiology Group was following while in hospital. TEST RESULTS PENDING ON DISCHARGE: None. ALLERGIES: NO KNOWN DRUG ALLERGIES. DISCHARGE PLAN: Posthospital, the patient was discharged to [facility]. Subsequently, the patient will follow up with primary care physician in 1 week, and the patient will follow up with Cardiology as instructed. HOSPITAL COURSE: A 73-year-old male with above-mentioned medical problem, who was admitted by Dr. Luis Diaz. Please see his H and P for further details. This patient was having recurrent fall at home, and he was having increasing shortness of breath. On admission, his chest x-ray was consistent with pulmonary vascular congestion. He was relatively having low oxygen. He was diagnosed with congestive heart failure exacerbation. He was treated with Lasix, and subsequently, he was admitted to telemetry floor. The patient was continued with Lasix until he became euvolemic. Echocardiography showed EF 20% to 25%. Cardiology was consulted. LifeVest was arranged before discharge. His medication was optimized based on his hemodynamics while in hospital as able. Heart failure education given. Dietary education given. This patient is overall medically stable for discharge. Healthy lifestyle measures discussed with the patient. I have seen and examined the patient at bedside today. REVIEW OF SYSTEMS: All review of systems reviewed with him and negative. PHYSICAL EXAMINATION: VITAL SIGNS: Currently, temperature 98.2, pulse 67, respiratory rate 18, saturation 96% on room air, and blood pressure 125/78. Weight 150 pounds. GENERAL: The patient is currently alert and awake, no obvious acute distress. HEENT: Head; normocephalic, atraumatic. LUNGS: Clear to auscultation without any rhonchi. NECK: No JVD. CARDIAC: S1 and S2 appear regular. Soft systolic murmur noted at the apex and lower left sternal border. ABDOMEN: Soft and benign. EXTREMITIES: No edema. SKIN: Psoriatic rash noted. NEUROLOGIC: Nonfocal examination. Paper work for discharge done and discharge medication reconciliation done. Total time spent on discharge day, 31 minutes. Job ID: [id number]
--- NOTE | 2018-06-24 13:02 | PQF ---
CLINICAL DOCUMENTATION IMPROVEMENT CLARIFICATION FORM: ICD-10 Updated PLEASE DO AN ADDENDUM TO THE PROGRESS NOTE WITH ANY DOCUMENTATION UPDATES OR ADDITIONS AND CARRY THROUGH TO DC SUMMARY. THANK YOU. DATE: 06/24/2018 ATTN: Dr. Bravo Please exercise your independent, professional judgment in responding to the clarification form. Clinical indicators are provided on the bottom of this form for your review Please check appropriate box(s): AMI TYPE: [ x ] NSTEMI due to Demand Ischemia (AMI Type II) [ ] Demand Ischemia without MN [ ] Other diagnosis [ ] Unable to determine In addition, please specify: Present on Admission (POA): [ x ] Yes [ ] No [ ] Unable to determine CLINICAL INDICATORS - SIGNS / SYMPTOMS / LABS H&P 06/20: Elevated troponin secondary to demand ischemia. 06/20(): Cardiac enzymes shows a troponin I of 0.236. CK of 433 with MB of 8.1 decreasing now to 6.2, this certainly could be some demand ischemia assoc. with his multiple falls, it is not significantly elevated in comparison to the total CK PN 06/23-06/24 (Arata): NSTEMI demand ischemia vs Could be significant CAD. RISKS: H&P 06/18: Hx HTN. Dementia. COPD. Acute CHF exacerbation. PN 06/24 (Arata) Long hx of ETOH and tobacco abuse. TREATMENT: MAR: Coreg 3.123 mg po 06/19-06/24 MAR: Aspirin 325 mg po 06/19-06/24 MAR: Spironolactone 25 mg po 06/21-06/24 Thank you, Amanda (This form is maintained as a part of the permanent medical record) 2014 [employer]. All Rights Reserved Amanda Shankar RN, BSN [email or web address] Office: [phone] [facility]
--- NOTE | 2018-06-25 09:21 | EKG ---
Test Reason : Blood Pressure : / mmHG Vent. Rate : 093 BPM Atrial Rate : 093 BPM P-R Int : 134 ms QRS Dur : 138 ms QT Int : 388 ms P-R-T Axes : 064 -28 148 degrees QTc Int : 482 ms Sinus rhythm with frequent Premature ventricular complexes Possible Left atrial enlargement Non-specific intra-ventricular conduction block T wave abnormality, consider lateral ischemia Abnormal ECG Confirmed by TRACY CASE ([id number]), managing editor LUPE CARVER ([id number]) on 06/25/2018 9:20:43 AM Referred By: Confirmed By:TRACY CASE
== END 2018-06-24 12:44 | DRG 282 ==
LOC: ERS 18:32 → EEVIPCON 21:23 → ERHOLD 21:23 → 2SE 06-19 01:42 → 2NO 06-22 18:39
PROVIDERS: ADMIT Internal Medicine; ATTEND Internal Medicine
DX: I11.0 Hypertensive heart disease with heart failure (principal); I21.A1 Myocardial infarction type 2; I50.23 Acute on chronic systolic (congestive) heart failure; F32.9 Major depressive disorder, single episode, unspecified; F03.90 Unspecified dementia, unspecified severity, without behavioral disturbance, psychotic disturbance, mood disturbance, and anxiety; E78.5 Hyperlipidemia, unspecified; J44.9 Chronic obstructive pulmonary disease, unspecified; E87.6 Hypokalemia; E83.42 Hypomagnesemia; R63.4 Abnormal weight loss; I34.0 Nonrheumatic mitral (valve) insufficiency; I07.1 Rheumatic tricuspid insufficiency; E53.8 Deficiency of other specified B group vitamins; L40.9 Psoriasis, unspecified; Z79.82 Long term (current) use of aspirin; Z87.891 Personal history of nicotine dependence; Z91.81 History of falling; F10.10 Alcohol abuse, uncomplicated; R53.1 Weakness; I73.9 Peripheral vascular disease, unspecified; Z68.26 Body mass index [BMI] 26.0-26.9, adult
CPT/HCPCS: 36415; 71045; 80048; 80053; 80061; 80306; 80307; 82550; 82553; 82607; 82746; 83735; 83880; 84100; 84443; 84484; 85025; 87040; 90471; 90662; 93005; 93306; 93798; 93923; 94640; 96365; 96367; G0008; J0696; J1940; J3475; J7050; J7620